=== PATIENT | female | born 1960 | race Caucasian/White ===

== ENCOUNTER 2019-01-11 18:05 | Inpatient (IN) | payer BC, SELFPAY ==
[2019-01-11] VITALS (9 sets, daily range): BP systolic 116–149; BP diastolic 59–92; PULSE 69–98; RESP 13–21; TEMP 36.6–36.7; O2SAT 94–98; BMI 34.0
--- NOTE | 2019-01-11 19:21 | ED.ABDPAIN ---
HPI - Abdominal Pain General Chief Complaint: Abdominal Pain Stated Complaint: GI BLEED Time Seen by Provider: 01/11/19 19:21 Source: patient Mode of arrival: ambulatory Limitations: no limitations History of Present Illness HPI narrative: patient is a 58-year-old female who presents with GI bleeding. She has a history of colon polyps. She had a colonoscopy last week in [place] is where she had some polyps removed. She has had 3-4 episodes of large bloody bowel movement this afternoon. His she feels like she will have to go again. She does have a history of GI bleeding after colonoscopy where she received at least 7 units of blood and platelets. she denies any abdominal pain although she does have some slight cramping. She has no nausea or vomiting. She did take some ibuprofen today but is not on any anti-platelet or anticoagulation medication. She denies any chest pain heart palpitations dizziness or lightheadedness. MD complaint: other ( GI bleed) Onset (ago): hour(s) Related Data Home Medications Medication Instructions Recorded Confirmed escitalopram oxalate 0.5 tab PO DAILY 01/11/19 01/11/19 estradiol 0.5 mg PO DAILY 01/11/19 01/11/19 hydrochlorothiazide 12.5 mg PO DAILY 01/11/19 01/11/19 losartan 50 mg PO DAILY 01/11/19 01/11/19 Allergies Allergy/AdvReac Type Severity Reaction Status Date / Time Penicillins [PENICILLINS] Allergy Mild RASH AND Verified 01/11/19 18:19 EDEMA Review of Systems Review of Systems ROS Unobtainable: All systems reviewed & are unremarkable except as noted in HPI and below ENT Ears, Nose, Mouth, and Throat: Denies vertigo and Denies dizziness Cardiovascular Denies chest pain, Denies irregular heart rhythm, Denies lightheadedness, Denies palpitations, Denies dyspnea, Denies dyspnea on exertion and Denies orthopnea Respiratory Denies cough, Denies dyspnea, Denies dyspnea on exertion and Denies wheezing Gastrointestinal Gastrointestinal: Reports as per HPI, Reports change in stool character and Denies nausea Genitourinary Denies hematuria, Denies flank pain, Denies urinary incontinence and Denies urinary urgency Musculoskeletal Denies back pain, Denies muscle weakness, Denies numbness and Denies tingling Integumentary/Breasts Denies pruritus, Denies erythema, Denies rash and Denies wounds Neurologic Denies vertigo, Denies dizziness, Denies numbness and Denies tingling Endocrine Denies palpitations Hematologic/Lymphatic Denies easy bruising Allergic/Immunologic Denies wheezing PFSH Medical History Colon polyps (Acute) Hypertension (Acute) Surgical History Status post delivery Status post cholecystectomy Status post hysterectomy Status post rotator cuff repair Status post tubal ligation Family History Brother Age: 66 Mental health problem Brother Age: 65 Hypertension Grandfather Cancer Hypertension Grandmother Heart disease Hypertension Mother Hypertension Stroke Breast cancer Sister Age: 62 Hypertension Social History Smoking Status: Never smoker alcohol intake: never substance use type: does not use Family History Brother Age: 66 Mental health problem Brother Age: 65 Hypertension Grandfather Cancer Hypertension Grandmother Heart disease Hypertension Mother Hypertension Stroke Breast cancer Sister Age: 62 Hypertension Social History Smoking Status: Never smoker alcohol intake: never substance use type: does not use Exam Initial Vital Signs Initial Vital Signs: Vital Signs Temperature 97.9 F 01/11/19 18:09 Pulse Rate 98 H 01/11/19 18:09 Respiratory Rate 18 01/11/19 18:09 Blood Pressure 149/92 H 01/11/19 18:09 Pulse Oximetry 98 01/11/19 18:09 GENERAL: alert well-appearing no acute distress, able to stand on her own without assistance HEENT: Head atraumatic,EOMI, pupils reactive, face symmetric, CARDIOVASCULAR: Regular rate and rhythm without murmurs, rubs or gallops. RESPIRATORY: Breath sounds equal bilaterally, no wheezes rales or rhonchi. ABDOMEN: Soft, nontender. Normoactive bowel sounds all 4 quadrants. No guarding or rebound. EXTREMITIES: Normal range of motion, no clubbing or edema. Neurovascularly intact NEUROLOGICAL: Alert and oriented x4.Normal gait and speech. Cranial nerves II through XII grossly intact. SKIN: Warm, dry, no laceration, no petechiae, no rashes or lesions. Course Orders Ordered: ED Orders 01/11/19 19:30 CT abdomen pelvis w con Stat 01/11/19 20:15 Complete Blood Count AUTO DIFF Stat Comprehensive Metabolic Panel Stat Lactate (Lactic Acid) Stat Partial Thromboplastin Time Stat Prothrombin Time INR Stat Type and Screen Stat 01/11/19 21:39 Consult to General Surgery Stat 01/12/19 02:00 Hemoglobin and Hematocrit Stat 01/12/19 08:00 Complete Blood Count AUTO DIFF Stat Sodium Chloride (Normal Saline 0.9%) 1,000 mls @ 125 mls/hr IV CONT ARELI Ondansetron HCl (Zofran) 4 mg IV Q4HR PRN PRN Reason: Nausea And Vomiting Discontinued Medications Ondansetron HCl (Zofran) 4 mg IV NOW ONE Stop: 01/11/19 19:29 Last Admin: 01/11/19 20:28 Dose: 4 mg Pantoprazole Sodium (Protonix) 40 mg IV NOW ONE Stop: 01/11/19 19:29 Last Admin: 01/11/19 20:28 Dose: 40 mg Vital Signs - 8 hr 01/11/19 18:09 01/11/19 20:05 01/11/19 20:30 Temperature 97.9 F Pulse Rate 98 H 93 H 93 H Respiratory Rate 18 18 18 Blood Pressure 149/92 H Blood Pressure [Left Arm] 127/68 116/59 L Pulse Oximetry 98 94 95 01/11/19 21:30 01/11/19 22:00 01/11/19 22:30 Temperature Pulse Rate 85 92 H 87 Respiratory Rate 21 13 14 Blood Pressure Blood Pressure [Left Arm] 134/62 130/74 122/68 Pulse Oximetry 94 97 95 01/11/19 23:01 01/11/19 23:41 Temperature Pulse Rate 87 69 Respiratory Rate 18 18 Blood Pressure 116/59 L Blood Pressure [Left Arm] 117/65 Pulse Oximetry 96 95 MDM - Abdominal Pain Medical Records Attestation: I reviewed the patient's medical records. Lab Data Attestation: I reviewed the patient's lab results. Result diagrams: 01/11/19 20:15 01/11/19 20:15 Lab Results 01/11/19 01/11/19 01/11/19 Range/Units 20:15 20:15 20:15 WBC 7.9 (4.5-11.0) X10^3/uL RBC 4.15 (4.0-5.2) X10^6/uL Hgb 12.8 (12.0-16.0) g/dL Hct 38.7 (36-46) % MCV 93.2 (80-100) fL MCH 31.0 (26-34) PG MCHC 33.2 (30-36) % RDW 13.7 (11.6-14.8) % Plt Count 369 (150-400) X10^3/uL Neut % (Auto) 72.5 (50-75) % Lymph % (Auto) 18.8 L (25-40) % Cameron % (Auto) 6.9 (3-14) % Eos % (Auto) 1.2 L (2-4) % Baso % (Auto) 0.6 (0-2) % Neut # (Auto) 5700 (6149-1672) /uL Lymph # (Auto) 1500 (3314-8155) /uL Cameron # (Auto) 500 (0-900) /uL Eos # (Auto) 100 (0-450) /uL Baso # (Auto) 0 (0-100) /uL PT 11.4 (10.1-12.7) SECONDS INR 1.0 (0.9-1.3) APTT 35 (26.4-36.2) SECONDS Sodium 138 (137-145) mmol/L Potassium 3.4 (3.4-5.1) mmol/L Chloride 102 (98-107) mmol/L Carbon Dioxide 26 (22-32) mmol/L BUN 16 (7-17) mg/dL Creatinine 0.50 L (0.52-1.04) mg/dL Estimated GFR > 60.0 (>60) mL/min BUN/Creatinine Ratio 32.0 H (6-22) Glucose 128 H (80-110) mg/dL Lactate (0.7-2.1) mmol/L Calcium 8.7 (8.4-10.2) mg/dL Total Bilirubin 0.5 (0.2-1.3) mg/dL AST 20 (14-36) IU/L ALT 31 (9-52) IU/L Alkaline Phosphatase 51 (38-126) U/L Total Protein 6.9 (6.3-8.2) g/dL Albumin 4.1 (3.5-5.0) g/dL Globulin 2.8 (1.7-4.1) g/dL Albumin/Globulin Ratio 1.5 (1.0-2.8) Blood Type Antibody Screen 01/11/19 01/11/19 Range/Units 20:15 20:15 WBC (4.5-11.0) X10^3/uL RBC (4.0-5.2) X10^6/uL Hgb (12.0-16.0) g/dL Hct (36-46) % MCV (80-100) fL MCH (26-34) PG MCHC (30-36) % RDW (11.6-14.8) % Plt Count (150-400) X10^3/uL Neut % (Auto) (50-75) % Lymph % (Auto) (25-40) % Cameron % (Auto) (3-14) % Eos % (Auto) (2-4) % Baso % (Auto) (0-2) % Neut # (Auto) (4193-1437) /uL Lymph # (Auto) (6316-6833) /uL Cameron # (Auto) (0-900) /uL Eos # (Auto) (0-450) /uL Baso # (Auto) (0-100) /uL PT (10.1-12.7) SECONDS INR (0.9-1.3) APTT (26.4-36.2) SECONDS Sodium (137-145) mmol/L Potassium (3.4-5.1) mmol/L Chloride (98-107) mmol/L Carbon Dioxide (22-32) mmol/L BUN (7-17) mg/dL Creatinine (0.52-1.04) mg/dL Estimated GFR (>60) mL/min BUN/Creatinine Ratio (6-22) Glucose (80-110) mg/dL Lactate 1.2 (0.7-2.1) mmol/L Calcium (8.4-10.2) mg/dL Total Bilirubin (0.2-1.3) mg/dL AST (14-36) IU/L ALT (9-52) IU/L Alkaline Phosphatase (38-126) U/L Total Protein (6.3-8.2) g/dL Albumin (3.5-5.0) g/dL Globulin (1.7-4.1) g/dL Albumin/Globulin Ratio (1.0-2.8) Blood Type B Negative Antibody Screen Negative Point of care testing: Point of Care Testing Stool Occult Blood Positive Imaging Data CT scan - abdomen: Radiologist's impression: PROCEDURE: CT ABDOMEN PELVIS W CON INDICATIONS: GI bleed recent colonoscopy TECHNIQUE: After the administration of intravenous contrast, 5 mm thick sections acquired from the diaphragm to the symphysis. 5 mm coronal and sagittal reformats were acquired. For radiation dose reduction, the following was used: automated exposure control, adjustment of mA and/or kV according to patient size. COMPARISON: None. FINDINGS: Image quality: Excellent. ABDOMEN: Lung bases: Lung bases are clear. Heart size is normal. Solid organs: Liver is normal in size and enhancement. Gallbladder has been previously resected. Biliary system is non dilated. Pancreas enhances normally. Spleen is normal in size and enhancement. No adrenal nodules. Kidneys demonstrate normal size and enhancement, without hydronephrosis. Peritoneum and bowel: Bowel loops demonstrate normal wall thickness and caliber. No free fluid or air. Nodes and vessels: No retroperitoneal or mesenteric adenopathy by size criteria. Aorta and inferior vena cava are normal in size. Miscellaneous: No ventral hernias. PELVIS: Genitourinary: Bladder wall thickness is normal. Miscellaneous: No inguinal hernias or adenopathy. Bones: No suspicious bony lesions. No vertebral body compression fractures. IMPRESSION: No source of current symptoms is found. There is no suspicion for colonic injury after colonoscopy. The large and small bowel visualized appear normal. No acute bone or soft tissue lesion is found. Dictated by: Clint Mejia M.D. on 01/11/2019 at 21:22 Approved by: Clint Mejia M.D. on 01/11/2019 at 21:23 MDM Narrative Medical decision making narrative: Patient has had a 2 grossly bloody bowel movements with clots in the ED. Blood pressure has decreased slightly while in the ED but continues to have a systolic above 100 and a map greater than 65. 9:40 p.m.: Dr. Stout has been updated patient's symptoms and test results. Patient actually has pictures of her most recent colonoscopy color photocopies have been made in in patient's chart. He agrees to be a contaminated land consultant and admitted to Medicine. Recommend transfusing blood if patient is symptomatic her hemoglobin becomes less than 7. 10:00 p.m.: Dr. Billings hospitalist accepts patient to observation recommend IV fluid and repeat blood work. Discharge Plan Departure Patient Disposition: Admitted as Observation Clinical Impression: Acute GI bleeding Discharge Date/Time: 01/11/19 23:48 Interventions: ED Discharge Assessment Last Done: 01/11/19 23:41 Admit Date/Time: 01/11/19 22:18 Admit Provider: Hamzah Billings
--- NOTE | 2019-01-11 19:30 | DI.CT.S_ITS ---
PROCEDURE: CT ABDOMEN PELVIS W CON INDICATIONS: GI bleed recent colonoscopy TECHNIQUE: After the administration of intravenous contrast, 5 mm thick sections acquired from the diaphragm to the symphysis. 5 mm coronal and sagittal reformats were acquired. For radiation dose reduction, the following was used: automated exposure control, adjustment of mA and/or kV according to patient size. COMPARISON: None. FINDINGS: Image quality: Excellent. ABDOMEN: Lung bases: Lung bases are clear. Heart size is normal. Solid organs: Liver is normal in size and enhancement. Gallbladder has been previously resected. Biliary system is non dilated. Pancreas enhances normally. Spleen is normal in size and enhancement. No adrenal nodules. Kidneys demonstrate normal size and enhancement, without hydronephrosis. Peritoneum and bowel: Bowel loops demonstrate normal wall thickness and caliber. No free fluid or air. Nodes and vessels: No retroperitoneal or mesenteric adenopathy by size criteria. Aorta and inferior vena cava are normal in size. Miscellaneous: No ventral hernias. PELVIS: Genitourinary: Bladder wall thickness is normal. Miscellaneous: No inguinal hernias or adenopathy. Bones: No suspicious bony lesions. No vertebral body compression fractures. IMPRESSION: No source of current symptoms is found. There is no suspicion for colonic injury after colonoscopy. The large and small bowel visualized appear normal. No acute bone or soft tissue lesion is found. Dictated by: Clint Mejia M.D. on 01/11/2019 at 21:22 Approved by: Clint Mejia M.D. on 01/11/2019 at 21:23
[2019-01-11 20:27] LABS: Add Manual Diff / Slide Review NO; Basophils Absolute Auto 0 /uL (0-100); Basophils Percent Auto 0.6 % (0-2); Eosinophils Absolute Auto 100 /uL (0-450); Eosinophils Percent Auto 1.2 % (2-4); Hematocrit 38.7 % (36-46); Hemoglobin 12.8 g/dL (12.0-16.0); Lymphocytes Absolute Auto 1500 /uL (1100-4500); Lymphocytes Percent Auto 18.8 % (25-40); Mean Corpuscular HGB Conc 33.2 % (30-36); Mean Corpuscular Volume 93.2 fL (80-100); Monocytes Absolute Auto 500 /uL (0-900); Monocytes Percent Auto 6.9 % (3-14); Neutrophils Absolute Auto 5700 /uL (1500-7000); Neutrophils Percent Auto 72.5 % (50-75); Platelet Count 369 X10^3/uL (150-400); Red Blood Cell Count 4.15 X10^6/uL (4.0-5.2); Red Cell Distribution Width 13.7 % (11.6-14.8); White Blood Cell Count 7.9 X10^3/uL (4.5-11.0)
[2019-01-11] MEDS: ONDANSETRON 4 MG/2 ML INJ IV (20:28)
[2019-01-11] MEDS: PANTOPRAZOLE 40 MG VIAL IV (20:28)
[2019-01-11 20:42] LABS: Prothrombin Time 11.4 SECONDS (10.1-12.7)
[2019-01-11 20:45] LABS: PTT Partial Thromboplastin Tim 35 SECONDS (26.4-36.2)
[2019-01-11 20:50] LABS: Lactate (Lactic Acid) 1.2 mmol/L (0.7-2.1)
[2019-01-11 20:51] LABS: Alanine Aminotransferase 31 IU/L (9-52); Albumin 4.1 g/dL (3.5-5.0); Albumin Globulin Ratio 1.5 (1.0-2.8); Alkaline Phosphatase 51 U/L (38-126); Aspartate Aminotransferase 20 IU/L (14-36); Bilirubin Total 0.5 mg/dL (0.2-1.3); Blood Urea Nitrogen 16 mg/dL (7-17); Calcium 8.7 mg/dL (8.4-10.2); Carbon Dioxide 26 mmol/L (22-32); Chloride 102 mmol/L (98-107); Estimated Glomerular Filt Rate > 60.0 mL/min (>60); Globulin 2.8 g/dL (1.7-4.1); Glucose 128 mg/dL (80-110); HEMOLYSIS 24 (0-50); Potassium 3.4 mmol/L (3.4-5.1); Sodium 138 mmol/L (137-145); Total Protein 6.9 g/dL (6.3-8.2)
--- NOTE | 2019-01-11 21:16 | PC.NURSE ---
Pt has had [address] blood BMs since 1930. Second BM had large clots.
[2019-01-12] VITALS (12 sets, daily range): BP systolic 97–130; BP diastolic 60–75; PULSE 71–107; RESP 14–18; TEMP 36.3–36.8; O2SAT 95–99
[2019-01-12] MEDS: SODIUM CHLORIDE 0.9% 1,000 ML 125 ML IV ×3 (01:40→17:12)
[2019-01-12 02:16] LABS: Hematocrit 31.4 % (36-46); Hemoglobin 10.4 g/dL (12.0-16.0)
--- NOTE | 2019-01-12 03:54 | PC.NURSE ---
Addendum entered by Amy Mclaughlin R.N. 01/12/19 06:52: Pt had a measured dark red watery stool output of 300ml. Original Note: Admission note: Received pt from ED. Pt AxOx4, able to make needs known, denies nausea and pain, oriented to room and call light, safety checks completed. Moderate fall risk. Has hx of GI bleed post-colonoscopy in 2005 requiring 7 units of blood. Pt has had one episode of lane red blood stool while on unit, and 2 episodes while down in ED. No acute needs at this time, will continue to monitor.
--- NOTE | 2019-01-12 07:59 | P.CONS_ITS ---
History of Present Illness Date Patient Seen: 01/12/19 Time Patient Seen: 07:52 Chief complaint: GI BLEED Reason for consult: Blood per rectum and anemia Requesting provider: Hamzah Billings Narrative: 58-year-old otherwise relatively healthy female who is exactly 6 days status post colonoscopy with multiple polypectomies at an outside facility in [place] who presented the emergency department yesterday with acute onset of maroon stool and obvious blood per rectum. She had no other symptoms. Denies any pain with defecation. No incontinence. No abdominal pain. No chest pain or shortness of breath. No dizziness, vertigo, or lightheadedness. No nausea or vomiting. She had been tolerating his usual diet without any issue. She actually shoveled snow and took ibuprofen thereafter for mild musculoskeletal discomfort. However, she does not take NSAIDs normally, including aspirin. She has no history of ulcer disease. In the emergency department she had 2 further liquid maroon stools. Hemoglobin at that time was approximately 12.8. She was admitted per the internal medicine service for ongoing monitoring of her hemodynamics status and hemoglobin levels. Since admission last evening she has had 2 more relatively small volume liquid maroon stools. Again, she has no other symptoms. Interestingly, she did have a si milar episode in 2006 following colonoscopy at the same facility which required repeat colonoscopy in placement of clips. The issue subsequently resolved. Nevertheless she required a total of 7 units packed red blood cell transfusion during that episode. Her previous colonoscopy in 2012 also resulted in polypectomy but with no bleeding episodes. She has no other history of spontaneous bleeding such as epistaxis or significant bruising. She takes no anticoagulation therapy. [facility] Medical History Colon polyps (Acute) Hypertension (Acute) Surgical History Status post delivery Status post cholecystectomy Status post hysterectomy Status post rotator cuff repair Status post tubal ligation Family History Brother Age: 66 Mental health problem Brother Age: 65 Hypertension Grandfather Cancer Hypertension Grandmother Heart disease Hypertension Mother Hypertension Stroke Breast cancer Sister Age: 62 Hypertension Social History household members: spouse Smoking Status: Never smoker alcohol intake: never substance use type: does not use Family History Brother Age: 66 Mental health problem Brother Age: 65 Hypertension Grandfather Cancer Hypertension Grandmother Heart disease Hypertension Mother Hypertension Stroke Breast cancer Sister Age: 62 Hypertension Social History household members: spouse Smoking Status: Never smoker alcohol intake: never substance use type: does not use Meds Home Medications Medication Instructions Recorded Confirmed Type escitalopram oxalate 0.5 tab PO DAILY 01/11/19 01/11/19 History estradiol 0.5 mg PO DAILY 01/11/19 01/11/19 History hydrochlorothiazide 12.5 mg PO DAILY 01/11/19 01/11/19 History losartan 50 mg PO DAILY 01/11/19 01/11/19 History Allergies Allergy/AdvReac Type Severity Reaction Status Date / Time Penicillins [PENICILLINS] Allergy Mild RASH AND Verified 01/11/19 18:19 EDEMA Review of Systems Review of Systems All systems reviewed & are unremarkable except as noted in HPI and below Exam Vital Signs (past 8 hours): - 01/12/19 04:02 Temperature 97.9 F Pulse Rate 82 Respiratory Rate 18 Blood Pressure 128/75 Pulse Oximetry 98 Oxygen Delivery Method Room Air Narrative Exam Narrative: Well-nourished well-developed obese female lying comfortably in bed in no acute distress. Alert oriented x3. Sclera nonicteric Regular rate and rhythm Abdomen is soft but protuberant without masses or tenderness. Certainly no guarding or rebound. Extremities show no clubbing or cyanosis Rectal examination is deferred in light of recent colonoscopy. In fact, those records are available on the chart dated January 06, 2019. I have reviewed them. She had multiple polyps removed with hot snare. Largest 1 appeared to be in the cecum. Objective Labs Result Diagrams: 01/12/19 02:05 01/11/19 20:15 Labs: Laboratory Results - last 24 hr 01/11/19 01/11/19 01/11/19 20:15 20:15 20:15 WBC 7.9 RBC 4.15 Hgb 12.8 Hct 38.7 MCV 93.2 MCH 31.0 MCHC 33.2 RDW 13.7 Plt Count 369 Neut % (Auto) 72.5 Lymph % (Auto) 18.8 L Garvin % (Auto) 6.9 Eos % (Auto) 1.2 L Baso % (Auto) 0.6 Neut # (Auto) 5700 Lymph # (Auto) 1500 Garvin # (Auto) 500 Eos # (Auto) 100 Baso # (Auto) 0 PT 11.4 INR 1.0 APTT 35 Sodium 138 Potassium 3.4 Chloride 102 Carbon Dioxide 26 BUN 16 Creatinine 0.50 L Estimated GFR > 60.0 BUN/Creatinine Ratio 32.0 H Glucose 128 H Lactate Calcium 8.7 Total Bilirubin 0.5 AST 20 ALT 31 Alkaline Phosphatase 51 Total Protein 6.9 Albumin 4.1 Globulin 2.8 Albumin/Globulin Ratio 1.5 Blood Type Antibody Screen 01/11/19 01/11/19 01/12/19 20:15 20:15 02:05 WBC RBC Hgb 10.4 L Hct 31.4 L MCV MCH MCHC RDW Plt Count Neut % (Auto) Lymph % (Auto) Garvin % (Auto) Eos % (Auto) Baso % (Auto) Neut # (Auto) Lymph # (Auto) Garvin # (Auto) Eos # (Auto) Baso # (Auto) PT INR APTT Sodium Potassium Chloride Carbon Dioxide BUN Creatinine Estimated GFR BUN/Creatinine Ratio Glucose Lactate 1.2 Calcium Total Bilirubin AST ALT Alkaline Phosphatase Total Protein Albumin Globulin Albumin/Globulin Ratio Blood Type B Negative Antibody Screen Negative CT scan of the abdomen and pelvis done per the emergency room at the time of admission last night shows no evidence of free air or significant inflammatory changes. No free fluid. Bowel is otherwise unremarkable. I personally reviewed the films. Hemoglobin this morning has did diminish to 10.4 as above. Assessment & Plan Plan Narrative: 58-year-old female status post colonoscopy with probable post polypectomy hemorrhage. Based on the records provided from last week's procedcee e the most likely source of hemorrhage would be at the cecum where photographs support a moderate-sized hot snare polypectomy intervention. She has no signs or symptoms to suggest upper gastrointestinal hemorrhage. I discussed my impression findings with the patient in detail. At this time she has no indications for intervention such as repeat colonoscopy or surgery. We will continue to follow her serial hemoglobin levels and transfuse as needed if he becomes symptomatic and/or hemoglobin dropped to approximately 7.0 or less. Obviously, she shows evidence of significant major acute hemorrhage in she would require more urgent intervention. She is familiar with repeat colonoscopy and clip placement as needed based on previous episode 12 years ago. I discussed the potential need for tagged red blood cell scan or angiography, which I explained are not available at this institution. If we felt these were necessary then she understands she would require transfer to a facility that [place] those services in conjunction with advanced gastroenterology services. She was agreeable to such if necessary. If she continues to have ongoing slow hemorrhage with need for 4 or more units of blood transfusion but otherwise hemodynamically stable then she would be a potential candidate for repeat colonoscopy as above following a bowel preparation. Again, I discussed this with her in detail. I reassured her that the majority of these incidents generally resolve spontaneously. If her hemoglobin remained stable throughout the day today then we could allow her a clear liquid diet, but for now she will remain NPO with IV fluid hydration. All questions were answered to her satisfaction, and she voiced understanding. We will continue to follow her status as above.
[2019-01-12 08:23] LABS: Add Manual Diff / Slide Review NO; Basophils Absolute Auto 0 /uL (0-100); Basophils Percent Auto 0.7 % (0-2); Eosinophils Absolute Auto 100 /uL (0-450); Eosinophils Percent Auto 1.1 % (2-4); Hematocrit 26.2 % (36-46); Lymphocytes Absolute Auto 1300 /uL (1100-4500); Lymphocytes Percent Auto 23.9 % (25-40); Mean Corpuscular HGB Conc 34.3 % (30-36); Mean Corpuscular Hemoglobin 31.9 PG (26-34); Mean Corpuscular Volume 93.1 fL (80-100); Monocytes Absolute Auto 400 /uL (0-900); Monocytes Percent Auto 7.7 % (3-14); Neutrophils Absolute Auto 3500 /uL (1500-7000); Neutrophils Percent Auto 66.6 % (50-75); Platelet Count 319 X10^3/uL (150-400); Red Blood Cell Count 2.81 X10^6/uL (4.0-5.2); Red Cell Distribution Width 13.6 % (11.6-14.8); White Blood Cell Count 5.2 X10^3/uL (4.5-11.0)
--- NOTE | 2019-01-12 13:08 | PC.NURSE ---
1245 Pt had a lge,450 ml, blood loss from rectum. Not sure how much, or any, would be urine. Notified Dr Aleman, stat labs to be ordered. Pt states she became whoozie when going back to bed from [facility]. Pt inst to remain on bedrest, to use call light for any needs.
[2019-01-12 13:35] LABS: Add Manual Diff / Slide Review NO; Basophils Absolute Auto 0 /uL (0-100); Basophils Percent Auto 0.4 % (0-2); Eosinophils Absolute Auto 0 /uL (0-450); Eosinophils Percent Auto 0.7 % (2-4); Hematocrit 24.1 % (36-46); Lymphocytes Absolute Auto 1500 /uL (1100-4500); Lymphocytes Percent Auto 22.3 % (25-40); Mean Corpuscular HGB Conc 33.1 % (30-36); Mean Corpuscular Hemoglobin 31.3 PG (26-34); Mean Corpuscular Volume 94.6 fL (80-100); Monocytes Absolute Auto 500 /uL (0-900); Monocytes Percent Auto 7.7 % (3-14); Neutrophils Absolute Auto 4800 /uL (1500-7000); Neutrophils Percent Auto 68.9 % (50-75); Platelet Count 316 X10^3/uL (150-400); Red Blood Cell Count 2.55 X10^6/uL (4.0-5.2); Red Cell Distribution Width 13.6 % (11.6-14.8); White Blood Cell Count 6.9 X10^3/uL (4.5-11.0)
[2019-01-12] MEDS: ONDANSETRON 4 MG/2 ML INJ IV (13:35)
--- NOTE | 2019-01-12 16:52 | PM.HP.1 ---
History of Present Illness Date Patient Seen: 01/12/19 Chief complaint: GI BLEED Narrative: The patient is a 58-year-old female with a history of colon polyps who is had 4 colonoscopies. Her initial colonoscopy in 2006 resulted in removal of polyps and subsequently postprocedure complication including bleeding. She had to have repeat colonoscopy with clips placed. The patient had repeat colonoscopy and 2012 which was uneventful. One week ago the patient went to [place] for follow-up colonoscopy. Her procedure her was uneventful. Patient was in her usual state of health until yesterday. She went to the restroom and then had a large volume bowel movement which had bloody stool. She subsequently had a 7 additional BMs both with blood and ultimately liquid and gelatinous. Patient describes crampy abdominal pain today. She lives on [facility] and was brought to the emergency room last night for evaluation. In the emergency room patient again had a large volume BM associated with blood. She had an initial hemoglobin hematocrit of 10.7 and 31. Repeat hemoglobin was 9 and 26. The patient had a large volume BM this morning where she felt nearly syncopal and dizzy. Repeat hemoglobin has now dropped to 8 and 24. She has no crampy abdominal pain. She has had some nausea but no vomiting. She has had no fever or chills. She denies any shortness of breath or chest pain. She has no dysuria hematuria or pyuria. She has no joint pains. Patient was seen and evaluated by Dr. Stout. Given her recurrent and continuous bleeding recommendation is for her to transfer to a higher level care where she can be seen by a public stenographer and perhaps evaluated by interventional radiology if indicated. I have communicated this to the patient and she understands. S Patient History Medical History Colon polyps (Acute) Hypertension (Acute) Surgical History Status post delivery Status post cholecystectomy Status post hysterectomy Status post rotator cuff repair Status post tubal ligation Family History Brother Age: 66 Mental health problem Brother Age: 65 Hypertension Grandfather Cancer Hypertension Grandmother Heart disease Hypertension Mother Hypertension Stroke Breast cancer Sister Age: 62 Hypertension Social History household members: spouse Smoking Status: Never smoker alcohol intake: never substance use type: does not use Family & Social History Family History Brother Age: 66 Mental health problem Brother Age: 65 Hypertension Grandfather Cancer Hypertension Grandmother Heart disease Hypertension Mother Hypertension Stroke Breast cancer Sister Age: 62 Hypertension Social History: household members spouse Prior Living Arrangements House Safety & Behavioral: Feels Safe in Current Yes Environment Been Physically Hurt or No Threatened By a Person Suicidal Ideation Description None Suicide Plan Description No Plan Tobacco & Substance use: Smoking Status Never smoker alcohol intake never Substance Use Type marijuana Meds Home Medications Medication Instructions Recorded Confirmed Type escitalopram oxalate 0.5 tab PO DAILY 01/11/19 01/11/19 History estradiol 0.5 mg PO DAILY 01/11/19 01/11/19 History hydrochlorothiazide 12.5 mg PO DAILY 01/11/19 01/11/19 History losartan 50 mg PO DAILY 01/11/19 01/11/19 History Allergies Allergy/AdvReac Type Severity Reaction Status Date / Time Penicillins [PENICILLINS] Allergy Mild RASH AND Verified 01/11/19 18:19 EDEMA Review of Systems Review of Systems All systems reviewed & are unremarkable except as noted in HPI and below Exam Vital Signs (past 8 hours): - 01/12/19 13:00 01/12/19 16:40 Temperature 97.8 F 98.2 F Pulse Rate 107 H 83 Respiratory Rate 16 18 Blood Pressure 130/74 117/63 Pulse Oximetry 98 95 Oxygen Delivery Method Room Air Oxygen Flow Rate 0 Narrative Exam Narrative: Pleasant female resting comfortably in no obvious distress HEENT: Normocephalic atraumatic, oropharynx is clear, dry mucous membranes, neck is supple, no adenopathy, no thyromegaly Lungs: Clear to auscultation Cardiac exam: Regular rate and rhythm normal S1 and S2 with a 2/6 systolic ejection murmur Abdomen: Soft nontender nondistended no hepatosplenomegaly noted no board-like rigidity, no masses palpated Extremities: No edema Neuro exam: Cranial nerves 2-12 are intact, motor strength 5/5 in the upper and 5/5 in lower extremity, sensation is grossly intact, reflexes are equal gait is not assessed. Skin exam: No lesions noted Psychiatric exam: Patient is awake alert and oriented. She has no hallucinations. No delusions. No tics. Objective Labs Result Diagrams: 01/12/19 13:23 01/11/19 20:15 Labs: Laboratory Results - last 24 hr 01/11/19 01/11/19 01/11/19 20:15 20:15 20:15 WBC 7.9 RBC 4.15 Hgb 12.8 Hct 38.7 MCV 93.2 MCH 31.0 MCHC 33.2 RDW 13.7 Plt Count 369 Neut % (Auto) 72.5 Lymph % (Auto) 18.8 L [place] % (Auto) 6.9 Eos % (Auto) 1.2 L Baso % (Auto) 0.6 Neut # (Auto) 5700 Lymph # (Auto) 1500 [place] # (Auto) 500 Eos # (Auto) 100 Baso # (Auto) 0 PT 11.4 INR 1.0 APTT 35 Sodium 138 Potassium 3.4 Chloride 102 Carbon Dioxide 26 BUN 16 Creatinine 0.50 L Estimated GFR > 60.0 BUN/Creatinine Ratio 32.0 H Glucose 128 H Lactate Calcium 8.7 Total Bilirubin 0.5 AST 20 ALT 31 Alkaline Phosphatase 51 Total Protein 6.9 Albumin 4.1 Globulin 2.8 Albumin/Globulin Ratio 1.5 Blood Type Antibody Screen 01/11/19 01/11/19 01/12/19 20:15 20:15 02:05 WBC RBC Hgb 10.4 L Hct 31.4 L MCV MCH MCHC RDW Plt Count Neut % (Auto) Lymph % (Auto) [place] % (Auto) Eos % (Auto) Baso % (Auto) Neut # (Auto) Lymph # (Auto) [place] # (Auto) Eos # (Auto) Baso # (Auto) PT INR APTT Sodium Potassium Chloride Carbon Dioxide BUN Creatinine Estimated GFR BUN/Creatinine Ratio Glucose Lactate 1.2 Calcium Total Bilirubin AST ALT Alkaline Phosphatase Total Protein Albumin Globulin Albumin/Globulin Ratio Blood Type B Negative Antibody Screen Negative 01/12/19 01/12/19 08:05 13:23 WBC 5.2 6.9 RBC 2.81 L 2.55 L Hgb 9.0 L 8.0 L Hct 26.2 L 24.1 L MCV 93.1 94.6 MCH 31.9 31.3 MCHC 34.3 33.1 RDW 13.6 13.6 Plt Count 319 316 Neut % (Auto) 66.6 68.9 Lymph % (Auto) 23.9 L 22.3 L [place] % (Auto) 7.7 7.7 Eos % (Auto) 1.1 L 0.7 L Baso % (Auto) 0.7 0.4 Neut # (Auto) 3500 4800 Lymph # (Auto) 1300 1500 [place] # (Auto) 400 500 Eos # (Auto) 100 0 Baso # (Auto) 0 0 PT INR APTT Sodium Potassium Chloride Carbon Dioxide BUN Creatinine Estimated GFR BUN/Creatinine Ratio Glucose Lactate Calcium Total Bilirubin AST ALT Alkaline Phosphatase Total Protein Albumin Globulin Albumin/Globulin Ratio Blood Type Antibody Screen Assessment & Plan Assessment & Plan narrative: Acute GI bleed, likely related to a recent colonoscopy and polypectomy present on admission Acute blood loss anemia following recent colonoscopy, present on admission Hypertension Anxiety Plan at this time the patient will continue on IV fluids. She will also be given clear liquids. Attempts will be made to transfer her to a higher level of care. Will continue to monitor her hematocrit. We will transfuse for a hemoglobin of less than 7. Patient will be transferred once a bed is available. Quality VTE Deep Vein Thrombosis/Pulmonary Embolism Present on Admission: No
[2019-01-12] MEDS: ACETAMINOPHEN 325 MG TABLET 650 MG PO (17:26)
[2019-01-12 20:07] LABS: Hematocrit 20.3 % (36-46); Hemoglobin 6.8 g/dL (12.0-16.0)
--- NOTE | 2019-01-12 22:12 | PC.NURSE ---
Evening Shift Note by Student Nurse, Violet Patel Patient napped from [id number], assessed patient at 1634. Patient requested gingerale, a toothbrush and something for her headache. All requests were observed being granted. Patient did mention pain at a 6/10 for headache and tylenol was observed being administered. Patient reported to pain, tenderness or distention in stomach, but noted a palpable 'hard spot' in RLQ. Patient said it wasn't painful. Hgb dipped to 6.8, and blood was ordered. Blood began transfusing at 2115 by registered nurse and reactions were monitored for.
[2019-01-13] VITALS (10 sets, daily range): BP systolic 108–144; BP diastolic 61–77; PULSE 65–87; RESP 16–97; TEMP 36.2–36.9; O2SAT 94–100
[2019-01-13 05:39] LABS: Add Manual Diff / Slide Review NO; Basophils Absolute Auto 0 /uL (0-100); Basophils Percent Auto 0.6 % (0-2); Eosinophils Absolute Auto 100 /uL (0-450); Eosinophils Percent Auto 2.3 % (2-4); Hematocrit 26.6 % (36-46); Hemoglobin 9.1 g/dL (12.0-16.0); Lymphocytes Absolute Auto 1700 /uL (1100-4500); Lymphocytes Percent Auto 29.4 % (25-40); Mean Corpuscular Hemoglobin 30.2 PG (26-34); Mean Corpuscular Volume 88.7 fL (80-100); Monocytes Absolute Auto 400 /uL (0-900); Monocytes Percent Auto 7.4 % (3-14); Neutrophils Absolute Auto 3600 /uL (1500-7000); Neutrophils Percent Auto 60.3 % (50-75); Platelet Count 244 X10^3/uL (150-400); Red Cell Distribution Width 16.2 % (11.6-14.8); White Blood Cell Count 5.9 X10^3/uL (4.5-11.0)
[2019-01-13 05:41] LABS: INR 1.1 (0.9-1.3); Prothrombin Time 12.1 SECONDS (10.1-12.7)
[2019-01-13 05:43] LABS: PTT Partial Thromboplastin Tim 32 SECONDS (26.4-36.2)
[2019-01-13 05:46] LABS: Alanine Aminotransferase 29 IU/L (9-52); Albumin 2.6 g/dL (3.5-5.0); Albumin Globulin Ratio 1.2 (1.0-2.8); Alkaline Phosphatase 32 U/L (38-126); Aspartate Aminotransferase 13 IU/L (14-36); Bilirubin Total 0.7 mg/dL (0.2-1.3); Blood Urea Nitrogen 10 mg/dL (7-17); Carbon Dioxide 29 mmol/L (22-32); Chloride 107 mmol/L (98-107); Estimated Glomerular Filt Rate > 60.0 mL/min (>60); Globulin 2.1 g/dL (1.7-4.1); Glucose 93 mg/dL (80-110); HEMOLYSIS < 15 (0-50); Potassium 3.5 mmol/L (3.4-5.1); Sodium 141 mmol/L (137-145); Total Protein 4.7 g/dL (6.3-8.2)
[2019-01-13 05:59] LABS: Calcium 7.2 mg/dL (8.4-10.2)
[2019-01-13] MEDS: ACETAMINOPHEN 325 MG TABLET 650 MG PO (06:31)
[2019-01-13] MEDS: SODIUM CHLORIDE 0.9% 1,000 ML 125 ML IV (06:43)
--- NOTE | 2019-01-13 09:29 | PM.PN.1 ---
Subjective Date Patient Seen: 01/13/19 Time Patient Seen: 09:29 Interval history: Patient continued to have liquid bloody stool throughout the evening. Her hemoglobin dropped to 6.8 and she was lightheaded with some dizziness upon standing. She required 2 units of packed red blood cells last evening which he completed approximately 4:00 a.m. this morning. Unfortunately all of the [facility] that have the available advance gastroenterology services, angiography, and nuclear medicine capabilities for gastrointestinal hemorrhage are unable to accept the patient in transfer due to lack of bed availability. Per Dr. Aleman we are at the moment awaiting communication from [facility] in [place] regarding potential transfer if they have a bed this morning. Regardless the patient was stable overnight and no longer has any lightheadedness or dizziness. No nausea or vomiting. No significant abdominal pain or cramping. Her last bowel movement was several hours ago which she states was less voluminous but did contain what appeared to be gelatinous clot. She has been tolerating clear liquids since last evening. No dysuria or hematuria. No chest pain or shortness of breath. She had no difficulties with the transfusions. Exam Vital Signs (past 8 hours): - 01/13/19 02:07 01/13/19 02:10 01/13/19 03:25 Temperature 97.9 F 97.9 F 97.6 F Pulse Rate 76 65 76 Respiratory Rate 18 24 20 Blood Pressure 114/61 114/61 108/61 Pulse Oximetry 100 98 01/13/19 07:59 Temperature 97.9 F Pulse Rate 74 Respiratory Rate 16 Blood Pressure 111/66 Pulse Oximetry 94 Oxygen Delivery Method Room Air Oxygen Flow Rate 0 Narrative Exam Narrative: Well-nourished well-developed moderately obese female lying in bed in no acute distress. Alert oriented x3. is at the bedside for my entire visit. Patient is afebrile and hemodynamically stable without tachycardia throughout the night. Normal blood pressure. Adequate urine output. Regular rate and rhythm this morning Abdomen is protuberant but soft and nondistended. She is nontender. No masses. Extremities show no clubbing or cyanosis Objective Labs Result Diagrams: 01/13/19 05:21 01/13/19 05:21 Labs: Laboratory Results - last 24 hr 01/11/19 01/12/19 01/12/19 20:15 13:23 20:00 WBC 6.9 RBC 2.55 L Hgb 8.0 L 6.8 L* Hct 24.1 L 20.3 L* MCV 94.6 MCH 31.3 MCHC 33.1 RDW 13.6 Plt Count 316 Neut % (Auto) 68.9 Lymph % (Auto) 22.3 L [place] % (Auto) 7.7 Eos % (Auto) 0.7 L Baso % (Auto) 0.4 Neut # (Auto) 4800 Lymph # (Auto) 1500 [place] # (Auto) 500 Eos # (Auto) 0 Baso # (Auto) 0 PT INR APTT Sodium Potassium Chloride Carbon Dioxide BUN Creatinine Estimated GFR BUN/Creatinine Ratio Glucose Calcium Total Bilirubin AST ALT Alkaline Phosphatase Total Protein Albumin Globulin Albumin/Globulin Ratio Blood Type B Negative Antibody Screen Negative Crossmatch See Detail 01/12/19 01/13/19 01/13/19 20:00 05:21 05:21 WBC 5.9 RBC 3.00 L Hgb Cancelled 9.1 L Hct Cancelled 26.6 L MCV 88.7 D MCH 30.2 MCHC 34.0 RDW 16.2 H Plt Count 244 Neut % (Auto) 60.3 Lymph % (Auto) 29.4 [place] % (Auto) 7.4 Eos % (Auto) 2.3 Baso % (Auto) 0.6 Neut # (Auto) 3600 Lymph # (Auto) 1700 [place] # (Auto) 400 Eos # (Auto) 100 Baso # (Auto) 0 PT 12.1 INR 1.1 APTT 32 D Sodium Potassium Chloride Carbon Dioxide BUN Creatinine Estimated GFR BUN/Creatinine Ratio Glucose Calcium Total Bilirubin AST ALT Alkaline Phosphatase Total Protein Albumin Globulin Albumin/Globulin Ratio Blood Type Antibody Screen Crossmatch 01/13/19 05:21 WBC RBC Hgb Hct MCV MCH MCHC RDW Plt Count Neut % (Auto) Lymph % (Auto) [place] % (Auto) Eos % (Auto) Baso % (Auto) Neut # (Auto) Lymph # (Auto) [place] # (Auto) Eos # (Auto) Baso # (Auto) PT INR APTT Sodium 141 Potassium 3.5 Chloride 107 Carbon Dioxide 29 BUN 10 Creatinine 0.50 L Estimated GFR > 60.0 BUN/Creatinine Ratio 20.0 Glucose 93 Calcium 7.2 L Total Bilirubin 0.7 AST 13 L ALT 29 Alkaline Phosphatase 32 L Total Protein 4.7 L Albumin 2.6 L Globulin 2.1 Albumin/Globulin Ratio 1.2 Blood Type Antibody Screen Crossmatch Assessment & Plan Assessment & Plan narrative: 58-year-old female now 1 week status post colonoscopy at an outside facility I which time she underwent multiple polypectomies and now has lower gastrointestinal hemorrhage. She has required transfusion and continues to have passage of blood this morning. Nevertheless, the bloody bowel movements are not as frequent or voluminous as yesterday. Regardless I believe she continues to have evidence of gastrointestinal hemorrhage this morning. We will continue to follow her hemoglobin levels throughout the day. We are awaiting communication from the tertiary center regarding potential transfer. If a bed is available then I would reiterate recommendation for transfer as per my previous note. Nevertheless I believe it would be prudent to prepare in the event that no bed available exists and we will manage the patient within our limited resources at this facility. I discussed this with her and her in detail this morning. I have also reviewed the case with Dr. Aleman at length. At this time I will proceed with formal bowel preparation in the event that she cannot be transferred and continues to have intermittent gastrointestinal hemorrhage. We would then plan for colonoscopy tomorrow morning after adequate bowel preparation. Interventions may consist of epinephrine injection, cauterization, and/more clip application. These are the immediately available resources and interventions at this institution. We do not have argon plasma coagulation or other such tools. Again, we also have no access to angiography or tagged red blood cell scan at this institution. Patient is aware of such. I discussed the technical details of colonoscopy. Risks, benefits, alternatives in light of the above developments were reviewed. Risks including but not limited to sedation, aspiration, further bleeding, recurrent bleeding despite successful intervention, nondiagnostic study, incomplete endoscopy, need for further studies or intervention as above, colonic perforation, and need for major abdominal surgery were explained in detail. Orders were written. We will proceed as above. Quality VTE Deep Vein Thrombosis/Pulmonary Embolism Present on Admission: No
[2019-01-13] MEDS: DEXTROSE 5%-NS W/KCL 20MEQ 1,000 ML 60 MEQ IV (11:37)
--- NOTE | 2019-01-13 12:19 | P.DS_ITS ---
History of Present Illness Chief complaint: GI BLEED Narrative: The patient is a 58-year-old female with a history of colon polyps who is had 4 colonoscopies. Her initial colonoscopy in 2006 resulted in removal of polyps and subsequently postprocedure complication including bleeding. She had to have repeat colonoscopy with clips placed. The patient had repeat colonoscopy and 2012 which was uneventful. One week ago the patient went to [place] for follow-up colonoscopy. Her procedure her was uneventful. Patient was in her usual state of health until yesterday. She went to the restroom and then had a large volume bowel movement which had bloody stool. She subsequently had a 7 additional BMs both with blood and ultimately liquid and gelatinous. Patient describes crampy abdominal pain today. She lives on [facility] and was brought to the emergency room last night for evaluation. In the emergency room patient again had a large volume BM associated with blood. She had an initial hemoglobin hematocrit of 10.7 and 31. Repeat hemoglobin was 9 and 26. The patient had a large volume BM this morning where she felt nearly syncopal and dizzy. Repeat hemoglobin has now dropped to 8 and 24. She has no crampy abdominal pain. She has had some nausea but no vomiting. She has had no fever or chills. She denies any shortness of breath or chest pain. She has no dysuria hematuria or pyuria. She has no joint pains. Patient was seen and evaluated by Dr. Stout. Given her recurrent and continuous bleeding carl mmendation is for her to transfer to a higher level care where she can be seen by a press supervisor and perhaps evaluated by interventional radiology if indicated. I have communicated this to the patient and she understands. S Discharge Providers Date of admission: 01/11/19 22:18 Consults: 01/11/19 21:39 Consult to General Surgery Stat Comment: Consulting Provider: Hamzah Stout Reason for consultation: gi bleed Has provider been notified: Yes Discharge provider: Lucrecia Aleman MD Discharge Date: 01/13/19 Summary Discharge Diagnosis: Acute blood loss anemia status post 2 units of blood Lower GI bleed status post polypectomy Hypertension Obesity Hospital Course: Patient is a delightful 58-year-old female who was admitted to the hospital for rectal bleeding. Patient had a colonoscopy 1 week ago. She was well until 1 day prior to admission when she developed abrupt onset bright red blood per rectum. She had no crampy abdominal pain. The patient had 7 loose bloody stools. She was in the hospital developed a large volume bleed with 400 cc of blood from below. She felt lightheaded and woozy. During her hospital stay she continued to have episodes of bleeding. She had a clarisa of her hemoglobin and hematocrit of 6.9/21. She received 2 units of packed RBCs. The patient continued to have small blood/maroon-colored stools. The she also complained of heartburn. She was given Protonix for the heartburn. The patient had a previous colonoscopy which resulted and post polypectomy bleeding. She at that time required 7 units of blood and clipping. As the patient continues to bleed from this episode it was felt appropriate for her to transfer to a higher level of care for gastroenterology evaluation. Patient is in agreement and plans will be made to transfer her to the [facility] under the care of the hospitalist with Dr. Shawn Fishman consulting. Patient will have a colon prep in anticipation for colonoscopy upon arrival to the [facility]. Exam Vital Signs (past 8 hours): - 01/13/19 07:59 Temperature 97.9 F Pulse Rate 74 Respiratory Rate 16 Blood Pressure 111/66 Pulse Oximetry 94 Oxygen Delivery Method Room Air Oxygen Flow Rate 0 Narrative Exam Narrative: Pleasant female In no acute distress Lungs: Clear to auscultation Cardiac exam: Regular rate and rhythm normal S1 and S2 with a 2/6 systolic ejection murmur Abdomen soft nontender nondistended, no hepatosplenomegaly Extremities no edema Objective Labs Result Diagrams: 01/13/19 05:21 01/13/19 05:21 Labs: Laboratory Results - last 24 hr 01/11/19 01/12/19 01/12/19 20:15 13:23 20:00 WBC 6.9 RBC 2.55 L Hgb 8.0 L 6.8 L* Hct 24.1 L 20.3 L* MCV 94.6 MCH 31.3 MCHC 33.1 RDW 13.6 Plt Count 316 Neut % (Auto) 68.9 Lymph % (Auto) 22.3 L [place] % (Auto) 7.7 Eos % (Auto) 0.7 L Baso % (Auto) 0.4 Neut # (Auto) 4800 Lymph # (Auto) 1500 [place] # (Auto) 500 Eos # (Auto) 0 Baso # (Auto) 0 PT INR APTT Sodium Potassium Chloride Carbon Dioxide BUN Creatinine Estimated GFR BUN/Creatinine Ratio Glucose Calcium Total Bilirubin AST ALT Alkaline Phosphatase Total Protein Albumin Globulin Albumin/Globulin Ratio Blood Type B Negative Antibody Screen Negative Crossmatch See Detail 01/12/19 01/13/19 01/13/19 20:00 05:21 05:21 WBC 5.9 RBC 3.00 L Hgb Cancelled 9.1 L Hct Cancelled 26.6 L MCV 88.7 D MCH 30.2 MCHC 34.0 RDW 16.2 H Plt Count 244 Neut % (Auto) 60.3 Lymph % (Auto) 29.4 [place] % (Auto) 7.4 Eos % (Auto) 2.3 Baso % (Auto) 0.6 Neut # (Auto) 3600 Lymph # (Auto) 1700 [place] # (Auto) 400 Eos # (Auto) 100 Baso # (Auto) 0 PT 12.1 INR 1.1 APTT 32 D Sodium Potassium Chloride Carbon Dioxide BUN Creatinine Estimated GFR BUN/Creatinine Ratio Glucose Calcium Total Bilirubin AST ALT Alkaline Phosphatase Total Protein Albumin Globulin Albumin/Globulin Ratio Blood Type Antibody Screen Crossmatch 01/13/19 05:21 WBC RBC Hgb Hct MCV MCH MCHC RDW Plt Count Neut % (Auto) Lymph % (Auto) [place] % (Auto) Eos % (Auto) Baso % (Auto) Neut # (Auto) Lymph # (Auto) [place] # (Auto) Eos # (Auto) Baso # (Auto) PT INR APTT Sodium 141 Potassium 3.5 Chloride 107 Carbon Dioxide 29 BUN 10 Creatinine 0.50 L Estimated GFR > 60.0 BUN/Creatinine Ratio 20.0 Glucose 93 Calcium 7.2 L Total Bilirubin 0.7 AST 13 L ALT 29 Alkaline Phosphatase 32 L Total Protein 4.7 L Albumin 2.6 L Globulin 2.1 Albumin/Globulin Ratio 1.2 Blood Type Antibody Screen Crossmatch Discharge Plan Discharge Plan Discharge Problem: Acute GI bleeding Patient Disposition: General Acute Hospital Transfer to: [facility] Under care of provider: Dr. Cheyenne Ramos Discharge Med Rec/Prescriptions Prescriptions: Continued estradiol 1 mg tablet 0.5 mg PO DAILY RF: 0 escitalopram oxalate 10 mg tablet 0.5 tab PO DAILY RF: 0 Discontinued losartan 50 mg tablet 50 mg PO DAILY RF: 0 hydrochlorothiazide 12.5 mg tablet 12.5 mg PO DAILY RF: 0 Provider Discharge Instructions Diet: Clear Liquid Liquid consistency: Normal/Thin Diet comment: continue golytely prep Discharge Data Attending Provider: Hamzah Billings Admit Date/Time: 01/11/19 22:18 Quality VTE Deep Vein Thrombosis/Pulmonary Embolism Present on Admission: No
[2019-01-13] MEDS: PEG3350/SOD SULF,BICARB,CL/KCL 4,000 ML SOLUTION 4000 ML PO (12:45)
[2019-01-13 12:51] LABS: Hematocrit 26.5 % (36-46)
[2019-01-13] MEDS: PANTOPRAZOLE 40 MG TABLET PO (12:57)
--- NOTE | 2019-01-13 15:29 | CM.DANOTE ---
DCP: assessment/note: Case received, EMR reviewed and discussed in Team Rounds. Dr. Aleman noted pt was in need of a transfer to a [facility] level of hospital specialty care. She and RN coordinator worked on a transfer. Followup shows that pt has been accepted by the [facility] and all is set up now, pending an open bed. P: transfer once bed opens. RN coordinator team will continue to follow on this.
[2019-01-13 22:06] LABS: Hematocrit 27.7 % (36-46); Hemoglobin 9.2 g/dL (12.0-16.0)
--- NOTE | 2019-01-13 22:08 | PC.NURSE ---
Evening Shift Note by Student Nurse, Violet Patel Patient AOX3, bowel prep still observed as being administered. Patient sitting up in bed, 02 100% with room air. Call Light in reach.
[2019-01-14] VITALS (10 sets, daily range): BP systolic 94–124; BP diastolic 43–72; PULSE 72–85; RESP 12–18; TEMP 36.3–36.7; O2SAT 94–99; BMI 35.3
[2019-01-14] MEDS: ONDANSETRON 4 MG/2 ML INJ IV (00:09)
--- NOTE | 2019-01-14 01:09 | PC.NURSE ---
0010 C/O nausea 4 mg. of Zofran admin. IVP slowly. Denies any abdominal pain, no bleeding noted. Will cont. POC & monitor.
[2019-01-14] MEDS: DEXTROSE 5%-NS W/KCL 20MEQ 1,000 ML 60 MEQ IV (05:05)
[2019-01-14 08:50] LABS: Add Manual Diff / Slide Review NO; Basophils Absolute Auto 0 /uL (0-100); Basophils Percent Auto 0.6 % (0-2); Eosinophils Absolute Auto 100 /uL (0-450); Eosinophils Percent Auto 2.4 % (2-4); Hematocrit 25.8 % (36-46); Lymphocytes Absolute Auto 1400 /uL (1100-4500); Lymphocytes Percent Auto 24.1 % (25-40); Mean Corpuscular HGB Conc 34.7 % (30-36); Mean Corpuscular Hemoglobin 30.4 PG (26-34); Mean Corpuscular Volume 87.5 fL (80-100); Monocytes Absolute Auto 500 /uL (0-900); Monocytes Percent Auto 7.8 % (3-14); Neutrophils Absolute Auto 3900 /uL (1500-7000); Neutrophils Percent Auto 65.1 % (50-75); Platelet Count 284 X10^3/uL (150-400); Red Blood Cell Count 2.95 X10^6/uL (4.0-5.2); Red Cell Distribution Width 16.2 % (11.6-14.8)
--- NOTE | 2019-01-14 09:42 | PM.PREOP ---
Pre-operative Note Interval Note History & Physical reviewed/Exam performed by Physician: Yes Changes to H&P: No H&P completed within 30 days and has changed as indicated here:: Patient seen and examined once again in the preoperative area. There was no bed availability at the tertiary center for transfer within the last 48 hr. We will proceed with colonoscopy today as planned. ASA Class (for procedural sedation): I
[2019-01-14] MEDS: SODIUM CHLORIDE 0.9% 1,000 ML 200 ML IV (10:07)
--- NOTE | 2019-01-14 11:11 | P.OP.ENDO_ITS ---
Operative Date/Time/Diagnoses Date of procedure: 01/14/19 Time of procedure: 11:09 Pre-op diagnosis: Lower gastrointestinal hemorrhage status post polypectomy Post-op diagnosis: same Procedure & Clinicians Study performed: 1. Sedation per surgeon 2. Colonoscopy with deployment of hemoclip Same procedure as scheduled: Yes Indications: 58-year-old female who is exactly 8 days status post colon[facility] where she had multiple polypectomies as well then presented to [facility] with significant bright red blood per rectum. She had ongoing bleeding leading to blood transfusion. She was hemodynamically stable, however. Therefore she underwent bowel preparation with plans for repeat colonoscopy. Surgeon: Hamzah Stout Procedure Notes SCOAP/Timeout: Yes Procedure in detail: After obtaining informed consent, the patient was brought to the GI suite and placed in the left lateral decubitus position on the examination table. After placement of appropriate monitors, the patient was given incremental doses of Versed and Fentanyl until an appropriate level of sedation was achieved. A time out was held per SCOAP protocol. A digital rectal examination was performed and did not reveal any masses or obstructing lesions. The colonoscope was gently passed into the patient's anus and the entire colon navigated to the level of the cecum with minimal difficulty. Once in the cecum, the scope was withdrawn being sure to go before and beyond all mucosal folds and prominences and get an excellent examination. The findings are noted above. At the level of the rectal vault, the scope was r etroflexed and the internal anal canal was examined. The scope was straightened and air aspirated from the colon. The instrument was removed from the patient's body and the procedure was concluded. The patient was allowed to awaken from sedation without difficulty and taken to the post-anesthesia care unit in good condition. Scope withdrawal time: 18:44 min Sedation minutes: 35 Findings: polyp (Very small benign appearing 2 or 3 mm polyp adjacent to the appendiceal orifice not removed due to patient bleeding risk.) and other findings (Two obvious prior polypectomy sites. Site at the transverse colon 70 cm from anal verge was ulcerated with evidence of recent bleeding. Hemoclip applied.) Specimen(s): none sent Complications: none Impression: 1. Lower gastrointestinal hemorrhage from polypectomy site in the transverse colon at 70 cm from anal verge. 2. Evidence of granulation tissue versus incomplete polypectomy in the transverse colon at approximately 60 cm from the anal verge but with no sequela of recent hemorrhage. Recommendations: Continue medication(s) and Other recommendation (Follow-up colonoscopy as per the recommendations of endoscopist in [place] who perf ormed colonoscopy on January 06, 2019.) Plan for aftercare: 1. Recover in the PACU then return to regular medical floor for ongoing monitoring. Follow up: as needed Disposition: PACU
--- NOTE | 2019-01-14 11:11 | SUR.OPER ---
One clip deployed at 70 cm.
[2019-01-14] MEDS: fentaNYL 250 MCG/5 ML INJ IV (11:12)
[2019-01-14] MEDS: MIDAZOLAM 5 MG/5 ML VIAL IV (11:12)
--- NOTE | 2019-01-14 11:30 | SUR.PHASEI ---
Report called to Rachele Castellon
--- NOTE | 2019-01-14 11:44 | PC.NURSE ---
Pt back to room from OR - post colonscopy. Pt denies pain, nausea, dizziness, or difficulty breathing. Pt able to transfer self from stretcher back to bed.
--- NOTE | 2019-01-14 11:49 | SUR.PHASEI ---
Pt transferred to the floor. Pt transferred self to the bed from the stretcher. VS stable. Report to Rachele. IV saline locked.
--- NOTE | 2019-01-14 13:22 | PM.PN.1 ---
Subjective Date Patient Seen: 01/14/19 Interval history: She is seen today to follow-up her GI bleed and plan colonoscopy. The plan had been to transfer her to [facility] for endoscopy there but there was delay in obtaining bed space and so Dr. Stout was able to scope her mid day today. A site at the transverse colon 70 cm from anal verge was ulcerated with evidence of recent bleeding. Hemoclip applied.)was found on the colonoscopy. This appeared to be at the site of the most recent polypectomy done a week ago in [place]. Exam Vital Signs (past 8 hours): - 01/14/19 07:50 01/14/19 09:54 01/14/19 11:13 Temperature 97.6 F 97.3 F L 97.7 F Pulse Rate 81 81 81 Respiratory Rate 16 16 15 Blood Pressure 124/66 124/69 117/72 Pulse Oximetry 97 98 94 01/14/19 11:17 01/14/19 11:23 01/14/19 11:31 Temperature Pulse Rate 73 85 79 Respiratory Rate 13 16 12 Blood Pressure 108/66 97/43 L 94/59 L Pulse Oximetry 97 96 97 01/14/19 11:40 Temperature 98.1 F Pulse Rate 76 Respiratory Rate 16 Blood Pressure 110/66 Pulse Oximetry 96 Oxygen Delivery Method Room Air Oxygen Flow Rate 0 Narrative Exam Narrative: She is alert and oriented x3. No apparent distress. Heart is regular rate and rhythm without murmur. Lungs are clear to auscultation bilaterally. Abdomen is soft, bowel sounds positive, nontender, no organomegaly. Extremities have no ankle edema. Objective Labs Result Diagrams: 01/14/19 08:20 01/13/19 05:21 Labs: Laboratory Results - last 24 hr 01/13/19 01/14/19 20:59 08:20 WBC 6.0 RBC 2.95 L Hgb 9.2 L 9.0 L Hct 27.7 L 25.8 L MCV 87.5 MCH 30.4 MCHC 34.7 RDW 16.2 H Plt Count 284 Neut % (Auto) 65.1 Lymph % (Auto) 24.1 L [place] % (Auto) 7.8 Eos % (Auto) 2.4 Baso % (Auto) 0.6 Neut # (Auto) 3900 Lymph # (Auto) 1400 [place] # (Auto) 500 Eos # (Auto) 100 Baso # (Auto) 0 Assessment & Plan Assessment & Plan narrative: Acute GI bleed, likely related to a recent colonoscopy and polypectomy present on admission with the culprit site identified at the transverse colon on today's colonoscopy. A clip was placed. Acute blood loss anemia following recent colonoscopy, present on admission - repeat CBC tomorrow pending. Hypertension - continue hydrochlorothiazide and losartan. Anxiety -continue Lexapro. Extensive plans for transfer as the safest option did not work out due to extenuating circumstances, mainly no available bed. So far she has done well with a local endoscopy procedure and will likely be able to be discharged home tomorrow. The transfer center actually called me just as she was undergoing colonoscopy here, at which point it was too late to change directions again. Quality VTE Deep Vein Thrombosis/Pulmonary Embolism Present on Admission: No
--- NOTE | 2019-01-14 20:22 | PC.NURSE ---
Pt denies pain and nausea, tolerating general diet; BTs active; O2 RA=95%; pt independent to bathroom; pt is planning to d/c tomorrow pending CBC in morning
[2019-01-15 00:20] VITALS: BP 114/66; PULSE 77; RESP 14; TEMP 36.8; O2SAT 97
--- NOTE | 2019-01-15 03:46 | PC.NURSE ---
Addendum entered by Jay Patiño R.N. 01/15/19 04:47: Pt doesn't want to be disturbed during the night. IV flush not done per request. Pt sleeping presently. Original Note: assumed care from Claire KO. Pt sidelying left. RR unlaboured. sleeping at bedside. Continue to monitor.
[2019-01-15 05:13] VITALS: BP 118/69; PULSE 75; RESP 16; TEMP 36.8; O2SAT 95
[2019-01-15 05:28] LABS: Add Manual Diff / Slide Review NO; Basophils Absolute Auto 0 /uL (0-100); Basophils Percent Auto 0.5 % (0-2); Eosinophils Absolute Auto 200 /uL (0-450); Eosinophils Percent Auto 3.2 % (2-4); Hematocrit 26.9 % (36-46); Lymphocytes Absolute Auto 1500 /uL (1100-4500); Lymphocytes Percent Auto 24.4 % (25-40); Mean Corpuscular HGB Conc 33.4 % (30-36); Mean Corpuscular Hemoglobin 30.2 PG (26-34); Mean Corpuscular Volume 90.5 fL (80-100); Monocytes Absolute Auto 400 /uL (0-900); Monocytes Percent Auto 6.5 % (3-14); Neutrophils Absolute Auto 4000 /uL (1500-7000); Neutrophils Percent Auto 65.4 % (50-75); Platelet Count 273 X10^3/uL (150-400); Red Blood Cell Count 2.97 X10^6/uL (4.0-5.2); Red Cell Distribution Width 16.2 % (11.6-14.8); White Blood Cell Count 6.1 X10^3/uL (4.5-11.0)
[2019-01-15 08:00] VITALS: BP 133/71; PULSE 75; RESP 16; TEMP 36.7; O2SAT 98
[2019-01-15] MEDS: hydroCHLOROthiazide 12.5 MG CAPSULE PO (08:14)
[2019-01-15] MEDS: ESCITALOPRAM 10 MG TABLET 5 MG PO (08:14)
[2019-01-15] MEDS: ESTRADIOL 0.5 MG TABLET PO (08:14)
[2019-01-15] MEDS: LOSARTAN 50 MG TABLET PO (08:15)
--- NOTE | 2019-01-15 09:33 | P.DS_ITS ---
History of Present Illness Date Patient Seen: 01/15/19 Chief complaint: GI BLEED Narrative: The patient is a 58-year-old female with a history of colon polyps who is had 4 colonoscopies. Her initial colonoscopy in 2006 resulted in removal of polyps and subsequently postprocedure complication including bleeding. She had to have repeat colonoscopy with clips placed. The patient had repeat colonoscopy and 2013 which was uneventful. One week ago the patient went to [place] for follow-up colonoscopy. Her procedure her was uneventful. Patient was in her usual state of health until yesterday. She went to the restroom and then had a large volume bowel movement which had bloody stool. She subsequently had a 7 additional BMs both with blood and ultimately liquid and gelatinous. Patient describes crampy abdominal pain today. She lives on [facility] and was brought to the emergency room last night for evaluation. In the emergency room patient again had a large volume BM associated with blood. She had an initial hemoglobin hematocrit of 10.7 and 31. Repeat hemoglobin was 9 and 26. The patient had a large volume BM this morning where she felt nearly syncopal and dizzy. Repeat hemoglobin has now dropped to 8 and 24. She has no crampy abdominal pain. She has had some nausea but no vomiting. She has had no fever or chills. She denies any shortness of breath or chest pain. She has no dysuria hematuria or pyuria. She has no joint pains. Patient was seen and evaluated by Dr. Stout. Given her recurrent and continuous bleeding recommendation is for her to transfer to a higher level care where she can be seen by a hotel or motel cleaning supervisor and perhaps evaluated by interventional radiology if indicated. I have communicated this to the patient and she understands. Discharge Providers Date of admission: 01/11/19 22:18 Consults: 01/11/19 21:39 Consult to General Surgery Stat Comment: Consulting Provider: Hamzah Stout Reason for consultation: gi bleed Has provider been notified: Yes Discharge provider: Adriano Sykes MD Discharge Date: 01/15/19 Summary Discharge Diagnosis: Acute GI bleed, likely related to a recent colonoscopy and polypectomy present on admission with the culprit site identified at the transverse colon on yesterday's colonoscopy. A clip was placed. Acute blood loss anemia following recent colonoscopy, present on admission Hypertension Anxiety Hospital Course: Acute GI bleed, likely related to a recent colonoscopy and polypectomy present on admission with the culprit site identified at the transverse colon on colonoscopy with Dr. Stout yesterday. A clip was placed. Acute blood loss anemia following recent colonoscopy, present on admission - repeat CBC today with a stable hemoglobin of 9.0. Started on iron and vitamin-C, to be followed up with her doctor on [facility] soon. Hypertension - continue hydrochlorothiazide and losartan. Anxiety -continue Lexapro. Extensive plans for transfer as the safest option did not work out due to extenuating circumstances, mainly no available bed at [facility]. She did well with a local endoscopy procedure and was able to be discharged home today. (The transfer center actually called me back with a bed just as she was undergoing colonoscopy here, at which point it was too late to change directions again.) Time Spent with Patient Less than 30 minutes Exam Vital Signs (past 8 hours): - 01/15/19 05:13 01/15/19 08:00 Temperature 98.2 F 98.0 F Pulse Rate 75 75 Respiratory Rate 16 16 Blood Pressure 118/69 133/71 Pulse Oximetry 95 98 Oxygen Delivery Method Room Air Oxygen Flow Rate 0 Narrative Exam Narrative: She is alert and oriented x3, in no apparent distress. She is dressed and sitting in her chair, hoping to [facility]. Heart is regular rate and rhythm without murmur. Lungs are clear to auscultation bilaterally. Abdomen is soft, bowel sounds positive, nontender, no organomegaly. There has been no further bleeding. There is no ankle edema. Objective Labs Result Diagrams: 01/15/19 05:01 01/13/19 05:21 Labs: Laboratory Results - last 24 hr 01/15/19 05:01 WBC 6.1 RBC 2.97 L Hgb 9.0 L Hct 26.9 L MCV 90.5 D MCH 30.2 MCHC 33.4 RDW 16.2 H Plt Count 273 Neut % (Auto) 65.4 Lymph % (Auto) 24.4 L [place] % (Auto) 6.5 Eos % (Auto) 3.2 Baso % (Auto) 0.5 Neut # (Auto) 4000 Lymph # (Auto) 1500 [place] # (Auto) 400 Eos # (Auto) 200 Baso # (Auto) 0 Discharge Plan Discharge Plan Patient Disposition: Home Discharge comment: Follow up with your doctor on [facility] this week Discharge Med Rec/Prescriptions Prescriptions: New ascorbic acid (vitamin C) [Vitamin C] 500 mg capsule, extended release 500 mg PO Q12H Qty: 60 RF: 0 ferrous fumarate 325 mg (106 mg iron) tablet 325 mg PO BID Qty: 60 RF: 0 Continued estradiol 1 mg tablet 0.5 mg PO DAILY RF: 0 losartan 50 mg Tablet 50 mg PO DAILY RF: 0 hydrochlorothiazide 12.5 mg Capsule 12.5 mg PO DAILY RF: 0 escitalopram oxalate [Lexapro] 5 mg Tablet 5 mg PO DAILY RF: 0 Discontinued losartan 50 mg tablet 50 mg PO DAILY RF: 0 escitalopram oxalate 10 mg tablet 0.5 tab PO DAILY RF: 0 hydrochlorothiazide 12.5 mg tablet 12.5 mg PO DAILY RF: 0 Provider Discharge Instructions Diet: Clear Liquid Visit Report/Discharge Packet Instructions: Gastrointestinal Bleeding Stand Alone Forms: Colonoscopy Result: [facility] Discharge Data Attending Provider: Hamzah Billings Admit Date/Time: 01/11/19 22:18 Discharges patient from system. Discharge Date/Time: 01/15/19 09:45 Quality VTE Deep Vein Thrombosis/Pulmonary Embolism Present on Admission: No
--- NOTE | 2019-01-15 10:24 | P.PN_ITS ---
Subjective Date Patient Seen: 01/15/19 Time Patient Seen: 08:22 Interval history: Patient denies any further blood per rectum. Had small clear liquid bowel movement last night but none since. Passing flatus. No abdominal pain. No nausea or vomiting. Tolerating a regular diet without issue. Reports normal spontaneous bladder function. Ambulating without difficulty. No subjective fever or chills. No chest pain or shortness of breath. Exam Vital Signs (past 8 hours): - 01/15/19 05:13 01/15/19 08:00 Temperature 98.2 F 98.0 F Pulse Rate 75 75 Respiratory Rate 16 16 Blood Pressure 118/69 133/71 Pulse Oximetry 95 98 Oxygen Delivery Method Room Air Oxygen Flow Rate 0 Narrative Exam Narrative: Well-nourished well-developed female in no acute distress sitting in the bedside chair comfortably. Alert oriented x3. is at the bedside for my entire visit. Abdomen soft, nondistended, nontender. Objective Labs Result Diagrams: 01/15/19 05:01 01/13/19 05:21 Labs: Laboratory Results - last 24 hr 01/15/19 05:01 WBC 6.1 RBC 2.97 L Hgb 9.0 L Hct 26.9 L MCV 90.5 D MCH 30.2 MCHC 33.4 RDW 16.2 H Plt Count 273 Neut % (Auto) 65.4 Lymph % (Auto) 24.4 L [place] % (Auto) 6.5 Eos % (Auto) 3.2 Baso % (Auto) 0.5 Neut # (Auto) 4000 Lymph # (Auto) 1500 [place] # (Auto) 400 Eos # (Auto) 200 Baso # (Auto) 0 Assessment & Plan Assessment & Plan narrative: 58-year-old female with significant lower gastrointestinal hemorrhage requiring blood transfusion after recent colonoscopy with polypectomy now controlled after colonoscopy with clip deployment yesterday. She has no evidence of further bleeding. Her hemoglobin has been completely stable. She is also hemodynamically stable with normal blood pressure and no tachycardia. I discussed her anemia with her which will likely persist for the next 2-3 months, and I advised her that she may experience some early fatigue. She is to be sent home on iron therapy per the internal medicine service. Otherwise she is stable for discharge today from a surgical perspective. She understands to call or return at any time should she have recurrent blood per rectum. All questions were answered to her satisfaction, and she voiced understanding. Follow up with surgery only as needed. Quality VTE Deep Vein Thrombosis/Pulmonary Embolism Present on Admission: No
== END 2019-01-15 09:45 | disposition home or self-care (01) | DRG 920 ==
LOC: ED 22:14 → AC 01-12 06:40
PROVIDERS: Internal Medicine; Surgery; Admitting Provider Internal Medicine; Emergency Provider Emergency Medicine; Visit Provider Internal Medicine
PROC: 0DJD8ZZ Inspection of Lower Intestinal Tract, Via Natural or Artificial Opening Endoscopic (ICD-10-PCS; CPT 45378; principal; 2019-01-14 11:45)
DX: K91.840 Postprocedural hemorrhage of a digestive system organ or structure following a digestive system procedure (principal); D62 Acute posthemorrhagic anemia; K63.3 Ulcer of intestine; I10 Essential (primary) hypertension; E66.9 Obesity, unspecified; Z68.35 Body mass index [BMI] 35.0-35.9, adult; F41.9 Anxiety disorder, unspecified
CPT/HCPCS: 36415; 36430; 36591; 45378; 74177; 80053; 82272; 83605; 85014; 85018; 85025; 85610; 85730; 86850; 86900; 86901; 96374; 96375; 99152; 99222; 99231; 99232; 99283; 99285; P9016; C9113; J2250; J2405; J3010; Q9967

== ENCOUNTER → 2019-09-24 12:25 | Outpatient (CLI) | payer BC, SELFPAY ==
[2019-01-11 23:59] VITALS: BMI 34.0
--- NOTE | 2019-09-24 | DI.MRI.S_ITS ---
PROCEDURE: MR HEAD/BRAIN WO CON INDICATIONS: ABNORMAL BONE GROWTH OF SKULL TECHNIQUE: Noncontrast axial T1 spin echo, axial T2 fast spin echo, sagittal and axial FLAIR, coronal T2 fast spin echo, axial gradient echo, axial diffusion and ADC through the brain. COMPARISON: None. FINDINGS: Image quality: Limited by susceptibility artifact related to metallic dental hardware. CSF Spaces: Basal cisterns are patent. No extra-axial fluid collections. Ventricles are normal in size and shape. Brain: No intracranial masses or hemorrhage. [place]/white matter interface is normal. Brainstem appears normal. Diffusion-weighted images demonstrate no acute ischemic insult. No chronic ischemic insults. Normal intravascular flow voids are present. Skull and face: Calvarium has normal marrow signal. Orbits appear normal. Sinuses: Sinuses and mastoids are clear. IMPRESSION: 1. No intracranial disease process within limitations related to susceptibility artifact. 2. Calvarial marrow demonstrates normal signal. Recommend CT scan of the head for definitive evaluation of the osseous skull. Dictated by: Kathleen Cardona MD, PhD on 09/26/2019 at 11:58 Approved by: Kathleen Cardona MD, PhD on 09/26/2019 at 12:08
== END ==
PROVIDERS: Visit Provider Family Medicine
DX: D49.2 Neoplasm of unspecified behavior of bone, soft tissue, and skin (principal)
CPT/HCPCS: 70551

== ENCOUNTER → 2019-10-12 11:34 | Outpatient (CLI) | payer BC, SELFPAY ==
[2019-01-11 23:59] VITALS: BMI 34.0
--- NOTE | 2019-10-12 11:57 | DI.CT.S_ITS ---
PROCEDURE: CT HEAD/BRAIN WO CON INDICATIONS: Evaluate anterior half of sagittal suture for bony pathology. MRI brain normal. Other specified disorders of bone, other site TECHNIQUE: Noncontrast 4.5 mm thick angled axial sections acquired from the foramen magnum to the vertex, with coronal and sagittal reformats. For radiation dose reduction, the following was used: automated exposure control, adjustment of mA and/or kV according to patient size. COMPARISON: [facility], MR, MR HEAD/BRAIN WO CON, 09/24/2019, 12:43. FINDINGS: Image quality: Excellent. CSF spaces: Basal cisterns are patent. No extra-axial fluid collections. The ventricles are symmetric in size and shape. Brain: No intracranial bleeds or masses. There is cerebral volume loss for age, with resultant ventricular and sulcal prominence. There are periventricular and deep white matter chronic small vessel ischemic changes. There is intracranial internal carotid artery atherosclerosis. Skull and face: In this patient with this given history, scrutiny is given to the anterior calvarium along the anterior sagittal suture. No calvarial masses or other significant bony abnormalities are seen at this site or elsewhere. Calvarium and visualized facial bones appear intact, without suspicious lesions. Incidental note is made of hyperostosis frontalis. This is not considered to be pathologic in a woman of this age. Sinuses: Visualized sinuses and mastoids are clear. IMPRESSION: Normal bones for age, without an imaging explanation found for the patient's clinical abnormality. Normal intracranial study. Dictated by: Mike Kumar M.D. on 10/12/2019 at 11:27 Approved by: Mike Kumar M.D. on 10/12/2019 at 11:30
== END ==
PROVIDERS: PCP Family Medicine; Visit Provider Family Medicine
DX: M89.8X8 Other specified disorders of bone, other site (principal)
CPT/HCPCS: 70450

== ENCOUNTER → 2019-11-15 11:13 | Outpatient (CLI) | payer BC, SELFPAY ==
[2019-01-11 23:59] VITALS: BMI 34.0
--- NOTE | 2019-11-15 | DI.US.S_ITS ---
PROCEDURE: US CAROTID DOPPLER BI INDICATIONS: OCCLUSION AND STENOSISOF BILAT CAROTID ARTERIES TECHNIQUE: Color and pulse Doppler interrogation was performed of both carotid systems, with image documentation and velocity measurements. COMPARISON: None. FINDINGS: Stenosis calculations are based on SRU (Society of Radiologists in Ultrasound) criteria. Right side: Brachial blood pressure: 110/71 mm Hg. Common carotid artery peak systolic velocity: 75 cm/sec. Internal carotid artery peak systolic velocity: 59 cm/sec. Internal carotid artery end diastolic velocity: 24 cm/sec. External carotid artery peak systolic velocity: 73 cm/sec. ICA/CCA peak systolic ratio: 0.8. Kong scale imaging description: No significant plaque. Percent internal carotid artery stenosis: No carotid stenosis.. Vertebral artery: Flow direction is antegrade. Left side: Brachial blood pressure: 101/72 mm Hg. Common carotid artery peak systolic velocity: 79 cm/sec. Internal carotid artery peak systolic velocity: 74 cm/sec. Internal carotid artery end diastolic velocity: 34 cm/sec. External carotid artery peak systolic velocity: 83 cm/sec. ICA/CCA peak systolic ratio: 0.9. [place] scale imaging description: No significant plaque. Percent internal carotid artery stenosis: No carotid stenosis.. Vertebral artery: Flow direction is antegrade. IMPRESSION: 1. No evidence of carotid stenosis. Dictated by: Ney Moe [facility] Interpreted: Kaushik Pa MD on 11/15/2019 at 14:52 Approved by: Kaushik Pa M.D. on 11/15/2019 at 16:39
--- NOTE | 2019-11-15 | DI.MRI.S_ITS ---
PROCEDURE: MR THORACIC SPINE WO CON INDICATIONS: diffuse idiopathic skeletal hyperstosis TECHNIQUE: Noncontrast sagittal T1 spine echo and T2 fast spin echo, sagittal STIR, axial T1 and T2 fast spin echo through the thoracic spine. COMPARISON: None. FINDINGS: Image quality: Excellent. Alignment and Curvature: There is mild diffuse thoracic kyphosis and otherwise normal bony alignment. Bone Marrow: Marrow is of normal overall signal. No acute vertebral body compression fractures. Moderate reactive signal within the endplates adjacent to the T9-T10 intervertebral disc. Mild reactive signal within the orbit adjacent to the T10-T11, T11-T12, and T12-L1 intervertebral discs. Spinal Cord: Visualized spinal cord is normal in size and signal. Paraspinous Soft Tissues: No paravertebral masses. Miscellaneous: Multilevel disc desiccation is present. Mild multilevel disc bulges within the lower thoracic spine, causing mild canal stenoses. No foraminal stenoses. No neural impingement. On axial images, central canal and foramina appear widely patent at all scanned levels. 27 mm diameter exophytic cysts involve the superior pole right kidney. IMPRESSION: 1. Multilevel degenerative disc disease. 2. No neural impingement. Dictated by: Cj Michelle M.D. on 11/15/2019 at 14:43 Approved by: Cj Michelle M.D. on 11/15/2019 at 14:47
--- NOTE | 2019-11-15 | DI.MRI.S_ITS ---
PROCEDURE: MR CERVICAL SPINE WO CON INDICATIONS: diffuse idiopathic skeletal hyperostosis TECHNIQUE: Noncontrast sagittal T1 spin echo and T2 fast spin echo, sagittal STIR, foraminal oblique sagittal T2 fast spin echo, and axial gradient echo or T2 fast spin echo through the cervical spine. COMPARISON: None. FINDINGS: Image quality: Partially degraded by motion artifact. Alignment and Curvature: There is loss of normal cervical lordosis. There is mild, grade 1 anterolisthesis of C3 on C4. Mild grade 1 retrolisthesis of C4 on C5, C5 on C6, and C6 on C7. Bone Marrow: Marrow demonstrates normal overall signal. There is moderate reactive signal within the endplates adjacent to the C4-C5, C5-C6, and C6-C7 intervertebral discs. Mild reactive signal within the endplates adjacent to the C3-C4 intervertebral disc. Spinal Cord: Visualized spinal cord has normal size and signal. No cerebellar tonsillar herniation. Paraspinous Soft Tissues: No paravertebral masses. Prevertebral soft tissues are normal in thickness. C2-C3: Moderate disc desiccation. Mild facet and uncovertebral hypertrophy bilaterally. No significant canal stenosis. Mild left foraminal stenosis. No right foraminal stenosis. C3-C4: Moderate disc desiccation. Mild disc height loss. Mild diffuse disc bulge. Moderate facet and uncovertebral hypertrophy bilaterally. Mild canal stenosis. Moderate left and no right foraminal stenosis. C4-C5: Moderate disc height loss and desiccation. Mild diffuse disc bulge. Mild facet and uncovertebral hypertrophy bilaterally. Moderate to severe canal stenosis. Severe bilateral foraminal stenosis. Bilateral C5 nerve root compression. C5-C6: Moderate disc height loss and desiccation. Mild diffuse disc bulge. Moderate facet and uncovertebral hypertrophy bilaterally. Severe canal stenosis. Mild cord flattening. Moderate right and severe left foraminal stenosis. Left C6 nerve root compression. C6-C7: Moderate disc height loss and desiccation. Mild diffuse disc bulge. Mild facet and uncovertebral hypertrophy bilaterally. Mild canal stenosis. Mild bilateral foraminal stenosis. C7-T1: Moderate disc desiccation. Mild facet hypertrophy bilaterally. No canal stenosis. Mild left foraminal stenosis. No right foraminal stenosis. IMPRESSION: 1. Multilevel degenerative disc and facet disease, as well as uncovertebral hypertrophy. 2. Multilevel canal stenoses, worst at C5-C6 where there is mild cord flattening. 3. Multilevel foraminal stenoses, worst at C4-C5 and C5-C6 where there is associated nerve root compression. Recommend correlation with clinical symptoms to ascertain relevance of these findings. Dictated by: Cj Michelle M.D. on 11/15/2019 at 14:01 Approved by: Cj Michelle M.D. on 11/15/2019 at 14:15
--- NOTE | 2019-11-15 | DI.MRI.S_ITS ---
PROCEDURE: MR LUMBAR SPINE WO CON INDICATIONS: diffuse idiopathic skeletal hyperstosis TECHNIQUE: Noncontrast sagittal T1 spin echo and T2 fast echo, sagittal STIR, axial T1 and T2 fast spin echo through the lumbar spine. In cases with scoliosis, additional coronal T2 fast spin echo may be performed. COMPARISON: [facility], CT, CT ABDOMEN PELVIS W CON, 01/11/2019, 21:01. FINDINGS: Image quality: Excellent. Alignment and Curvature: 5 lumbar type vertebral bodies are present by plain film. There is mild grade 1 retrolisthesis of L1 on L2 and L3 on L4, and mild grade 1 anterolisthesis of L4 on L5.. Bone Marrow: Marrow is of normal overall signal. No acute vertebral body compression fractures. Mild reactive signal within the endplates adjacent to the T11-T12, T12-L1, L1-L2, L4-L5, and L5-S1 intervertebral discs. Spinal Cord: Conus medullaris terminates at the L1-L2 disc space level. Visualized cord demonstrates normal signal and size. Paraspinous Soft Tissues: No paravertebral masses. L1-L2: Mild disco loss and desiccation. Mild diffuse disc bulge. Mild facet and ligamentum hypertrophy. Mild epidural lipomatosis. Mild canal stenosis. No foraminal stenosis. L2-L3: Mild facet and ligamentum hypertrophy. Mild epidural lipomatosis. Minimal canal stenosis. No foraminal stenosis. L3-L4: Mild disc desiccation. Mild diffuse disc bulge. Mild facet and ligament flavum hypertrophy. Mild epidural lipomatosis. Mild canal stenosis. Mild bilateral foraminal stenosis. L4-L5: Mild disc desiccation. Mild diffuse disc bulge. Moderate facet hypertrophy bilaterally. Mild canal stenosis. Mild bilateral foraminal stenosis. L5-S1: Mild disc height loss and desiccation. Mild diffuse disc bulge. Mild bilateral facet hypertrophy. Mild canal stenosis. Mild bilateral foraminal stenosis. IMPRESSION: 1. Multilevel degenerative disc and facet disease, as well as ligamentum flavum hypertrophy and epidural lipomatosis. 2. Mild multilevel canal and foraminal stenoses. No neural impingement. Dictated by: Cj Michelle M.D. on 11/15/2019 at 14:47 Approved by: Cj Michelle M.D. on 11/15/2019 at 14:50
== END ==
PROVIDERS: PCP Family Medicine; Visit Provider Family Medicine
DX: I65.23 Occlusion and stenosis of bilateral carotid arteries (principal); M48.10 Ankylosing hyperostosis [Forestier], site unspecified; M50.31 Other cervical disc degeneration, high cervical region; M48.02 Spinal stenosis, cervical region; M51.34 Other intervertebral disc degeneration, thoracic region; N28.1 Cyst of kidney, acquired; M51.36 Other intervertebral disc degeneration, lumbar region; M48.061 Spinal stenosis, lumbar region without neurogenic claudication; M51.37 Other intervertebral disc degeneration, lumbosacral region; M48.07 Spinal stenosis, lumbosacral region; E88.2 Lipomatosis, not elsewhere classified
CPT/HCPCS: 72141; 72146; 72148; 93880

== ENCOUNTER → 2020-11-05 14:49 | Outpatient (CLI) | payer BC, SELFPAY ==
[2019-01-11 23:59] VITALS: BMI 34.0
== END ==
PROVIDERS: PCP Family Medicine; Referring Provider Family Medicine; Visit Provider Family Medicine
DX: Z78.0 Asymptomatic menopausal state (principal); Z87.891 Personal history of nicotine dependence
CPT/HCPCS: 77080

== ENCOUNTER → 2021-01-03 07:38 | Outpatient (CLI) | payer OTHER, SELFPAY ==
[2019-01-11 23:59] VITALS: BMI 34.0
--- NOTE | 2021-01-03 | DI.MRI.S_ITS ---
PROCEDURE: MR STROKE Pre- and post-contrast brain MRI, non-contrast brain MR angiogram, pre- and postcontrast neck MR angiogram INDICATIONS: Transient cerebral ischemic attack, unspecified TECHNIQUE: Brain: Noncontrast axial T1 spin echo, axial T2 fast spin echo, sagittal and axial FLAIR, coronal T2 fast spin echo, axial gradient echo, axial diffusion and ADC through the brain. After the administration of contrast, axial 3D VIBE of the cranial vasculature and brain. Brain MRA: Non-contrast 3-D time of flight MR angiogram, with multiple ucsujur-buuuqsnjc-jvwogwrsoo (MIP) reformats performed. Neck MRA: Axial and sagittal TruFISP through the neck. Coronal dynamic MR angiogram during administration of contrast in the arterial and venous phases, with 3-dimenstional exhsflf-zddnlouyn-ovcvxgpkls (MIP) reformats constructed from subtraction images. COMPARISON: None. FINDINGS: Image quality: Partially degraded by metallic artifact. BRAIN: CSF spaces: Ventricles are normal in size and shape. Basal cisterns are patent. No extra-axial fluid collections. Brain: No intracranial bleeds or mass effects. There is mild diffuse cerebral volume loss. There is a minimal degree of patchy high FLAIR signal within the periventricular and subcortical white matter. [place]-white matter interface is normal. Diffusion weighted images show no acute ischemic insults. Brainstem appears normal. Normal intravascular flow voids are present. No abnormal intracranial enhancement. Skull and face: Calvarial marrow signal is normal. Orbits appear normal. Sinuses: Sinuses and mastoids are clear. BRAIN MR ANGIOGRAM: Anterior circulation: Intracranial internal carotid arteries are normal in size and enhancement. The flow within the paired anterior cerebral arteries is normal and symmetric. The flow within the middle cerebral arteries is normal and symmetric. The anterior communicating artery is seen. No stenoses, occlusions, or aneurysms. Posterior circulation: The visualized portions of the vertebral arteries demonstrate normal caliber, and join to form a normal appearing basilar artery. The flow within the posterior cerebral arteries is normal and symmetric. No stenoses, occlusions, or aneurysms. NECK MR ANGIOGRAM: Thoracic aortic arch is patent, and there is standard branching anatomy. Innominate artery is patent. Right subclavian artery is not well seen proximally, but is otherwise patent. Right vertebral artery is not well seen proximally, but is otherwise patent. Right common carotid artery is not well seen proximally, but is otherwise patent. Right internal and external carotid arteries are patent. Left common carotid artery is not well seen proximally, or in its midportion, but is otherwise patent. Left internal and external carotid arteries are patent. Left subclavian artery is patent. Left vertebral artery is not well seen proximally, but is otherwise patent. [employer] T2 imaging through the neck is grossly unremarkable. IMPRESSION: BRAIN MRI: 1. Mild volume loss. Minimal small vessel ischemic disease. 2. No acute process. No recent infarct. BRAIN MR ANGIOGRAM: Negative cerebral MR angiography. NECK MR ANGIOGRAM: 1. Limited evaluation of the proximal great vessels and proximal vertebral arteries. 2. Otherwise patent vertebral arteries. 3. No internal carotid artery stenosis bilaterally. Dictated by: Cj Michelle M.D. on 01/03/2021 at 14:10 Approved by: Cj Michelle M.D. on 01/03/2021 at 14:16
== END ==
PROVIDERS: PCP Family Medicine; Referring Provider Family Medicine; Visit Provider Family Medicine
DX: G45.9 Transient cerebral ischemic attack, unspecified (principal); G44.85 Primary stabbing headache; Q81.9 Epidermolysis bullosa, unspecified
CPT/HCPCS: 70548; 70553

== ENCOUNTER → 2021-01-19 10:39 | Outpatient (CLI) | payer OTHER, SELFPAY ==
[2019-01-11 23:59] VITALS: BMI 34.0
--- NOTE | 2021-01-19 | DI.MRI.S_ITS ---
PROCEDURE: MR LUMBAR SPINE WO CON INDICATIONS: Other spondylosis with myelopathy, lumbar region TECHNIQUE: Noncontrast sagittal T1 spin echo and T2 fast echo, sagittal STIR, axial T1 and T2 fast spin echo through the lumbar spine. In cases with scoliosis, additional coronal T2 fast spin echo may be performed. COMPARISON: [facility], , MR LUMBAR SPINE WO CON, 11/15/2019, 12:44. FINDINGS: Image quality: Excellent. Alignment and Curvature: There is mild grade 1 anterolisthesis at the L4-L5 level. Bone Marrow: Marrow is of normal overall signal. No acute vertebral body compression fractures. Spinal Cord: Conus medullaris terminates at the L1 level. Visualized cord demonstrates normal signal and size. Paraspinous Soft Tissues: No paravertebral masses. T12-L1: The disc height is well-preserved. Loss of disc signal is seen at this level. No significant neural foraminal or central canal narrowing can be seen. L1-L2: Mild loss of disc height is seen. Loss of disc signal is seen. Mild generalized disc bulge is seen. No significant neural foraminal or central canal narrowing can be seen. L2-L3: No significant abnormality is seen. L3-L4: The disc height is well-preserved. Loss of disc signal is seen at this level. Mild generalized disc bulge is seen. Mild facet joint hypertrophy is seen. No significant neural foraminal or central canal narrowing can be seen. L4-L5: Mild loss of disc height is seen. Loss of disc signal is seen. Moderate disc bulge is seen, with a central disc protrusion. Prominent facet hypertrophy is seen at this level. There is moderate right-sided and at least moderate left-sided neural foraminal narrowing seen. There is a mild degree of compression seen upon the exiting left L4 nerve root. There is at least moderate central canal narrowing seen at this level. These degenerative changes have progressed compared to 2019. L5-S1: The disc height is well-preserved. Loss of disc signal is seen at this level. Mild disc bulge is seen, with a central disc protrusion. At least moderate facet hypertrophy can be seen, right worse than left. Mild bilateral neural foraminal narrowing is seen. Minimal central canal narrowing is seen. When comparison is made with the prior examination, these findings are similar. IMPRESSION: Lumbar spine degenerative changes are seen, which are worst at the L4-L5 level. The degenerative changes at L4-L5 have progressed compared to 2019. Otherwise, the degenerative changes are similar to 2019. Dictated by: Mike Kumar M.D. on 01/21/2021 at 12:00 Approved by: Mike Kumar M.D. on 01/21/2021 at 12:04
== END ==
PROVIDERS: PCP Family Medicine; Referring Provider Family Medicine; Visit Provider Family Medicine
DX: M47.16 Other spondylosis with myelopathy, lumbar region (principal); M48.10 Ankylosing hyperostosis [Forestier], site unspecified; Q81.9 Epidermolysis bullosa, unspecified
CPT/HCPCS: 72148